=== PATIENT | male | born 1980 | race African-American/Black ===

== ENCOUNTER 2018-02-20 06:48 | Emergency (ER) | payer OTHER ==
[~2018-02-20] VITALS: Ht 185.4 cm; Wt 95.3 kg
[2018-02-20 07:15] VITALS: BP 141/94
[2018-02-20] MEDS ORDERED: NORCO 5-325 TA1 EACH PO (07:20)
[2018-02-20] MEDS ORDERED: PENICILLIN V P500 MG PO (07:20)
== END 2018-02-20 07:31 | disposition home or self-care (01) ==
LOC: M.ERS 06:48
DX: K02.9 Dental caries, unspecified (principal); J45.909 Unspecified asthma, uncomplicated; F17.210 Nicotine dependence, cigarettes, uncomplicated

== ENCOUNTER 2018-06-17 04:40 | Emergency (ER) | payer OTHER ==
[~2018-06-17] VITALS: Ht 185.4 cm; Wt 86.2 kg
[~2018-06-17 04:40] MED LIST: NORCO 5-325 TA1 EACH PO; PENICILLIN V P500 MG PO
[2018-06-17] MEDS ORDERED: NAPROSYN500 MG PO (07:32)
[2018-06-17] MEDS ORDERED: NORCO 5-325 TA1 EACH PO (07:32)
[2018-06-17 07:42] VITALS: BP 132/78
== END 2018-06-17 07:43 | disposition home or self-care (01) ==
LOC: M.ERS 04:40
DX: M23.91 Unspecified internal derangement of right knee (principal); S63.502A Unspecified sprain of left wrist, initial encounter; J45.909 Unspecified asthma, uncomplicated; V29.9XXA Motorcycle rider (driver) (passenger) injured in unspecified traffic accident, initial encounter; Y93.89 Activity, other specified; Y92.89 Other specified places as the place of occurrence of the external cause; Y99.8 Other external cause status

== ENCOUNTER 2019-04-18 13:47 | Emergency (ER) | payer OTHER ==
[~2019-04-18] VITALS: Ht 185.4 cm; Wt 81.7 kg
[~2019-04-18 13:47] MED LIST changes: +NAPROSYN500 MG PO
[2019-04-18] MEDS ORDERED: ACCUNEB SO1.25 MG/1 INH (13:57)
[2019-04-18] MEDS ORDERED: KEFLEX500 M1 PO (14:45)
[2019-04-18 15:04] VITALS: BP 138/94
== END 2019-04-18 15:07 | disposition home or self-care (01) ==
LOC: M.ERS 13:47
DX: S61.235A Puncture wound without foreign body of left ring finger without damage to nail, initial encounter (principal); F17.210 Nicotine dependence, cigarettes, uncomplicated; J45.909 Unspecified asthma, uncomplicated; W22.8XXA Striking against or struck by other objects, initial encounter; Y92.89 Other specified places as the place of occurrence of the external cause; Y93.89 Activity, other specified; Y99.8 Other external cause status